=== PATIENT | female | born 1975 | race Caucasian/White ===

== ENCOUNTER 2023-01-24 12:43 | Day surgery (SDC) | payer OTHER ==
[~2023-01-24] VITALS: Ht 172.7 cm; Wt 81.1 kg
[~2023-01-24 12:43] MED LIST: DOCU100 PO; ESTR2 PO; Gas Relief80 MG PO; Hydrocodone-Ap1 EA23 PO; IBU800 MG PO; Lotrisone Cream45 GM TOP; Milk Of Ma400 MG/5 M PO; Norco 10-325 T1 EACH PO; PROM25 PO; Percocet 5-3251 EACH PO; Zofran Odt4 MG SL
[2023-01-24] MEDS ORDERED: PROG100 PO (13:38)
[2023-01-24 14:48] VITALS: BP 98/66
== END 2023-01-24 14:51 | disposition home or self-care (01) ==
LOC: ORSCSDS 12:43
PROVIDERS: Internal Medicine Gastroenterology
PROC: 0DBM8ZX Excision of Descending Colon, Via Natural or Artificial Opening Endoscopic, Diagnostic (ICD-10-PCS; principal; 2023-01-24 14:30)
DX: Z12.11 Encounter for screening for malignant neoplasm of colon (principal); Z80.0 Family history of malignant neoplasm of digestive organs; D12.4 Benign neoplasm of descending colon; Z79.899 Other long term (current) drug therapy
CPT/HCPCS: 88305; J2704; J7120